=== PATIENT | female | born 1945 | race Caucasian/White ===

== ENCOUNTER 2018-11-26 08:54 | Inpatient (IN) ==
--- NOTE | 2018-11-26 09:50 | History & Physical Report ---
Date of Encounter: 11/26/18 Time of Encounter: 09:50 24 Hour HP Update - Instructions Instructions: If the History and Physical is less than 30 days old and was completed prior to A.M. admission and or procedure and has NOT been updated on calendar day of procedure please complete this update prior to performing procedure. - Update Patient reports changes in Medical Condition: No Changes in examination, assessment, or condition: No Changes in Medication: No Preop tests/diagnostics Reviewed: Yes Surgery Remains Indicated: Yes Consent for Planned Operative Procedure(s) Verified: Yes - Pre-Operative Checklist Preoperative Checklist Indicated: No Prophylactic Antibiotic Ordered: Yes Is VTE Prophylaxis Indicated?: Yes
--- NOTE | 2018-11-26 09:59 | Discharge Summary ---
<Lalo Michaud - Last Filed: 11/26/18 09:59> Orders not resulted at time of discharge: Pending orders 11/26/18 08:07 XR post op reverse apex LT [XR] Routine Hemoglobin and Hematocrit [HEME] Routine Date of Encounter: 11/26/18 - Discharge Diagnosis (1) Rotator cuff tear arthropathy of right shoulder Priority: Primary Status: Chronic (2) Status post reverse total replacement of right shoulder Priority: Primary Status: Acute (3) Obesity (BMI 30.0-34.9) Priority: Secondary Status: Chronic - Hospital Course Hospital course: Ms. Arzola is a 73 year old female - Time Spent with Patient Total time spent providing and/or coordinating discharge services: - Discharge Medications Home Medications: Atorvastatin [Lipitor] 40 mg PO HS 11/26/18 [History] Calcium Carbonate [Calcium] 1 tab PO DAILY 11/26/18 [History] Chlorpheniramine/Dextromethorp [Coricidin Hbp Cough & Cold Tab] 1 tab PO Q6H PRN 11/26/18 [History] Diclofenac Sodium [Voltaren] 1 appl TP QID PRN #0 11/26/18 [History] Fluticasone Propionate Nasal [Flonase] 1 spray NS DAILY 11/26/18 [History] Loratadine [Allergy Relief] 10 mg PO DAILY 11/26/18 [History] Metoprolol Succinate [Toprol Xl] 50 mg PO DAILY 11/26/18 [History] Montelukast [Singulair] 10 mg PO DAILY 11/26/18 [History] Multivit-Min/Iron/Folic Acid/K [Adults Multivitamin Tablet] 1 tab PO DAILY 11/26/18 [History] Omeprazole [PriLOSEC] 20 mg PO DAILY 11/26/18 [History] OxyCODONE Immed Rel [Roxicodone 5 MG] 5 mg PO Q6H PRN 7 Days #28 tablet 11/26/18 [Rx] Phytonadione [Vitamin K] 100 mcg PO DAILY 11/26/18 [History] Trazodone HCl 300 mg PO HS 11/26/18 [History] Vit C/Vit E AC/Lut/Copper/Zinc [Preservision Lutein Softgel] 1 tab PO BID 11/26/18 [History] Allergies/Adverse Reactions: Allergy/AdvReac Type Severity Reaction Status Date / Time azithromycin Allergy Unknown unknown Verified 11/26/18 10:20 [From Zithromax Z-Jay Jay] codeine Allergy Hives Verified 11/26/18 10:21 Sulfa (Sulfonamide Allergy Hives Verified 11/26/18 10:21 Antibiotics) Primary care physician: Margie Vila MD - Patient Status Disposition: Home Health Service Condition: Good - Discharge Instructions Follow Up With: Margie Vila MD [Primary Care Provider] - <Beti Pena - Last Filed: 11/28/18 21:42> Orders not resulted at time of discharge: Pending orders 11/26/18 08:07 XR post op reverse apex LT [XR] Routine Hemoglobin and Hematocrit [HEME] Routine 11/26/18 10:58 US anesthesia pain block [US] Routine Date of Encounter: 11/27/18 Time of Encounter: 21:41 - Discharge Diagnosis (1) Status post reverse total replacement of right shoulder Priority: Primary Status: Acute Comments: Opsite dressing, leave intact until first post-operative visit. Zipline in place, plan to remove at post-operative day #14-16. If dressing becomes >50% saturated, contact office, remove dressing and place appropriate dressing in its place. Do not allow for dressing to get wet. Shoulder Precautions x 6 weeks. Apply cold therapy wrap 3-6x/day for 20 minutes at a time. Encourage ambulation throughout the day. Use Incentive spirometer 10x/hour. Elevate affected extremity above heart as tolerated. NWB to affected upper extremity x 6 weeks. Will remove brace at first post-operative appointment. OK to remove during PT/OT and Home exercises. Remove ABD pillow at Postoperative day #1 (2) Obesity (BMI 30.0-34.9) Status: Chronic (3) Rotator cuff tear arthropathy of right shoulder Status: Chronic - Hospital Course Hospital course: Ms. Arzola is a 73 year old female status post Right TSR-r 11/26/18. Pain control: adequate Participating in PT. All questions and concerns addressed. Educated on use of incentive spirometer. Encouraged ambulation and proper hydration. Patient educated on post-operative restrictions and post-operative care. Assessment and plan: Continue with postoperative care Discharge plan: Home with OP once medically stable. - Time Spent with Patient Total time spent providing and/or coordinating discharge services: Primary care physician: Margie Vila MD - Patient Status Functional capacity at discharge: independent ambulation Overall status at discharge: patient is progressing back to baseline
--- NOTE | 2018-11-26 10:08 | Anesthesia Evaluation PreOp ---
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 Any Significant HX Other Medical History: GERD Anesthesia History: No Prior Anesthetic Complications, Past Anesthesia Alcohol Use: none Drug use: none Medications and Allergies Atorvastatin [Lipitor] 40 mg PO HS 11/26/18 [History] Calcium Carbonate [Calcium] 1 tab PO DAILY 11/26/18 [History] Chlorpheniramine/Dextromethorp [Coricidin Hbp Cough & Cold Tab] 1 each PO Q6H PRN 11/26/18 [History] Fluticasone Propionate Nasal [Flonase] 50 mcg NS DAILY 11/26/18 [History] Loratadine [Allergy Relief] 10 mg PO DAILY 11/26/18 [History] Metoprolol Succinate [Toprol Xl] 50 mg PO DAILY 11/26/18 [History] Montelukast [Singulair] 10 mg PO DAILY 11/26/18 [History] Multivit-Min/Iron/Folic Acid/K [Adults Multivitamin Tablet] 1 each PO DAILY 11/26/18 [History] Omeprazole [PriLOSEC] 20 mg PO DAILY 11/26/18 [History] Phytonadione [Vitamin K] 100 mcg PO DAILY 11/26/18 [History] Trazodone HCl 0.5 tab PO HS 11/26/18 [History] Vit C/Vit E AC/Lut/Copper/Zinc [Preservision Lutein Softgel] 1 each PO BID 11/26/18 [History] Voltaren QID PRN 11/26/18 [History] Allergy/AdvReac Type Severity Reaction Status Date / Time azithromycin Allergy Unknown unknown Verified 11/26/18 10:20 [From Zithromax Z-Jay Jay] codeine Allergy Hives Verified 11/26/18 10:21 Sulfa (Sulfonamide Allergy Hives Verified 11/26/18 10:21 Antibiotics) - Meds/Allergy Pre-op Review Medications Reviewed: Yes Allergies Reviewed: Yes Beta Blockers on Current Med List: Yes If Beta Blockers taken, Date/Time (Last Dose taken): 11/25/2018 at 1900 Anesthesia Results - Labs 11/24/2018 WBC 8.3 HGB 13.3 HCT 39.4 PLT 243 Na 141 K 4.7 BUN 18 Cr 0.92 - Imaging EKG: report reviewed (09/30/2018 sinus rhythm,) Anesthesia Exam O2 Sat Height 1.55 m Weight 80.286 kg O2 Sat by Pulse Oximetry 97 Vital Signs Temp Pulse Resp BP Pulse Ox 97.6 F 73 18 145/75 97 11/26/18 09:49 11/26/18 09:49 11/26/18 09:49 11/26/18 09:49 11/26/18 09:49 Height: 5'1'' Weight: 177 lbs NPO (# of Hours): 8 Pain Scale: 0 Pain Scale Used: Numeric (1 - 10) - HEENT Pupil (Motor): EOMI Mallampati: II Teeth: Normal, Missing Denture Type: Upper: Complete Oral Opening: Greater than 3 - BICYCLE SERVICE TECHNICIAN LOC: Oriented BICYCLE SERVICE TECHNICIAN Motor: Normal RUE, Normal LUE, Normal RLE, Normal LLE, Normal Face BICYCLE SERVICE TECHNICIAN Sensory: Normal: RUE, LUE, RLE, LLE, Face - Cardiac Rhythm: Regular Murmur: None - Pulmonary Breath Sounds: bilateral Clear Respiratory Effort: Symmetrical Anesthesia Assess/Plan ASA Score: 2 Level of consciousness: Cooperative, Oriented, Tranquil Anesthetic Plan: General, Regional Nerve Block Regional Nerve Block Plan: Supraclavicular Monitoring Plan: Standard Monitors Recovery Plan: PACU
[2018-11-26] MEDS ORDERED: Albuterol 2.5 MG/3 ML NEBULIZER IH ONE (10:21)
[2018-11-26] MEDS ORDERED: CeFAZolin Syr 2,000MG/20 ML 2,000 MG/20 ML SYRINGE IVPB ONE (10:21)
[2018-11-26] MEDS ORDERED: Ringers Solution, Lactated 1,000 ML IVC SCH (10:30)
[2018-11-26] MEDS ORDERED: *HR* Succinylcholine 200 MG/10 ML VIAL IVP ONE (10:36)
[2018-11-26] MEDS ORDERED: Dexamethasone 4 MG/ML VIAL ONE (10:36)
[2018-11-26] MEDS ORDERED: Lidocaine -MPF 2% 2 ML VIAL ONE (10:36)
[2018-11-26] MEDS ORDERED: *HR* Propofol 200 MG/20 ML VIAL IVP ONE (10:36)
[2018-11-26] MEDS ORDERED: *HR* FentaNYL (PF) 100 MCG/2 ML VIAL ONE (10:36)
[2018-11-26] MEDS ORDERED: Ondansetron 4 MG/2 ML VIAL ONE (10:36)
[2018-11-26] MEDS ORDERED: *HR* Midazolam HCl 2 MG/2 ML VIAL ONE (10:36)
[2018-11-26] MEDS ORDERED: ROPIVACAINE HCL/PF 0.5% 30 ML VIAL ONE (10:52)
[2018-11-26] MEDS ORDERED: Bupivacaine/Clonidine Syringe 1 EACH SYRINGE ONE (10:53)
[2018-11-26] MEDS ORDERED: Ondansetron 4 MG/2 ML VIAL IVP ONE (10:59)
[2018-11-26] MEDS ORDERED: *HR* OxyCODONE Immed Rel 5 MG TABLET PO PRN ×2 (10:59→13:57)
[2018-11-26] MEDS ORDERED: *HR* HYDROmorphone (PF) 1 MG/ML SYRINGE IVP PRN (10:59)
--- NOTE | 2018-11-26 11:29 | Anesthesia Procedures ---
Date of Encounter: 11/26/18 Time of Encounter: 11:07 Procedures: Anesthesia - Nerve Block Procedure Date: 11/26/18 Time: 11:07 Allergies/Adv Reactions: none Pre-op Diagnosis: Right rotator cuff arthropathy Surgical Procedure: Right total shoulder Checklist: Correct Patient Identifier, Correct procedure, History checked Correct side: Right Blood Thinner: No Monitor Applied: EKG, BP, Pulse Oximetry Supplemental Oxygen via Nasal Cannula (L/min): 2 Sedation: Versed (mg): 2 Sedation: Fentanyl (mcg): 50 Indication: Post Op Analgesia Pre-op Neuro Deficits: No Block Type: Supraclavicular (SCP,ICB) Catheter placed: No Sterile Technique: Yes Ultrasound used: Yes Anatomy identified: Yes Visual spread of Local: Yes Neuro Stimulation: No Blood on Needle Aspiration: No Smooth Injection of Local: Yes Pain with Injection of Local: No Prep: Chlorhexadine Needle: 22 x 50 mm Stimuplex Local: 0.25% Bupivicaine w/Clonidine 20 mcg/cc (10ml), Ropivacaine (0.5% 30ml) Number of Attempts: 1 Complications: None/effective block Vitals: Vital Signs/O2 Sat/Glucose, Most Recent Temp Pulse Resp BP Pulse Ox 97.6 F 73 18 145/75 97 11/26/18 09:49 11/26/18 09:49 11/26/18 09:49 11/26/18 09:49 11/26/18 09:49
[2018-11-26] MEDS ORDERED: Ethanol\\Acetic Acid\\Na Ace\\Ben 1,000 ML IRRIG.SOLN IR ONE (11:46)
--- NOTE | 2018-11-26 13:02 | Orthopedic Operative Note ---
Date of procedure: 11/26/18 Pre-op diagnosis: Cuff tear arthropathy right shoulder Post-op diagnosis: same Procedure: Procedure: Total Shoulder Replacment Reverse, right Estimated blood loss: 50 cc Hardware: Metal and polyethylene replacement: Arthrex 24, +2 , 25 screw glenoid baseplate, 4 locking 5.5 screw, 36/+4 glenosphere, 7 apex humeral stem, poly insert 3 Exam Under anesthesia: Full motion no instability Procedural Notes: Grade 4 arthritic changes humeral head glenoid socket rotator cuff tear Operative procedure: The patient was brought to the operating room and placed on the operating room table. After general anesthesia was administered the operative shoulder was examined. Findings were noted. The patient was placed in the modified beachchair position. All pressure points were padded appropriately. And the head was stabilized in the neutral position. The operative extremity was prepped and draped in the sterile surgical fashion. The patient received IV antibiotics prior to skin incision. A standard deltopectoral approach was made to the operative shoulder. Incision was made to the skin and subcutaneous tissue,hemo stasis was obtained with Bovie cautery. Using careful blunt dissection the cephalic vein was identified and mobilized medially. The deltopectoral interval was developed and the clavipectoral fascia was incised. The subscap was released off the lesser tuberosity and tagged with #2 FiberWire suture subscap irreparable. The humerus was dislocated patient noted to have irreparable tear supraspinatus tendon, and the humeral cut was made along the anatomic neck. Anterior and posterior Bankart retractors were placed to expose the glenoid. Grade 4 arthritic changes humeral head glenoid socket The glenoid guide was seated and the centering hole was made. It was reamed with the appropriate reamer. The 24, +2, 25 mm screw, baseplate was seated and secured with 4 locking 5.5 screw. The baseplate was irrigated and dried and the 36+4 Glenosphere was seated and secured with the Montelongo taper. The Montelongo taper was tested and found to be secure, glenosphere fixation was secondarily secured with the central screw. The humerus was redislocated and prepared with the diaphyseal reamers, followed by a broaching process up to the appropriate size 7 apex in the patient's anatomic version. The metaphyseal reamer was then utilized. Trial reduction found the shoulder to be relocatable. Trial components were removed and 7 apex stem was impacted in place in the patient's anatomic version. Trial reduction found the shoulder to be relocatable and stable with the appropriate 3. Trial component was removed and the real implant was seated and secured the shoulder was reduced. The shoulder had excellent motion and excellent stability and no evidence of dislocation. The deep tissue was irrigated with pulse irrigation. The PA close the shoulder. The deltopectoral interval was closed with a running #1 PDS suture, subcutaneous tissue was irrigated and closed with 0 PDS suture, the skin was closed with Dermabond. The patient was placed in a sterile dressing, abduction brace and extubated. The patient was then transferred to the recovery room in stable condition. Anesthesia: GETA Surgeon: Lalo Michaud Was there an legal assistant present: No Estimated blood loss (cc): 50 Condition: stable Disposition: PACU
--- NOTE | 2018-11-26 13:36 | Anesthesia Evaluation Post Op ---
Date of Encounter: 11/26/18 Time of Encounter: 13:34 - Vital Signs Vital Signs: Vital Signs/O2 Sat/Glucose, Most Recent Temp Pulse Resp BP Pulse Ox 97.6 F 76 12 143/67 97 11/26/18 13:03 11/26/18 13:23 11/26/18 13:23 11/26/18 13:23 11/26/18 13:23 - Lungs Lungs: Clear Ascult./Percussion - Airway Airway: Non-obstructed - Cardiovascular Regular Rate - Mental Status Mental Status: Alert & Oriented, Answers Appropriately - Pain Pain Scale: 0 - Nausea Vomiting Nausea Vomiting: Not Present - Hydration Hydration: Ice chips, Has not voided Notes: 11/26/18 13:35 Pt has fully recovered from anesthetic. VSS. Neuro exam intact. - Discharge PostOp Status: Transfer Patient to floor
[2018-11-26] MEDS ORDERED: Sennosides 8.6 MG TABLET PO PRN (13:57)
[2018-11-26] MEDS ORDERED: traMADol 50 MG TABLET PO PRN (13:57)
[2018-11-26] MEDS ORDERED: Naloxone 0.4 MG/ML INJ IVP PRN (13:57)
[2018-11-26] MEDS ORDERED: MOM Conc 10 ML UD.LIQ PO PRN (13:57)
[2018-11-26] MEDS ORDERED: Ondansetron 4 MG/2 ML VIAL IVP PRN (13:57)
[2018-11-26] MEDS ORDERED: Temazepam 15 MG CAPSULE PO PRN (13:57)
[2018-11-26 14:30] LABS: Hematocrit 39.6 % (35.3-44.9); Hemoglobin 12.8 g/dL (11.5-15.4)
[2018-11-26] MEDS: *HR* Enoxaparin 30 MG/0.3 ML SYRINGE SQ SCH (17:52)
[2018-11-26] MEDS ORDERED: *HR* Enoxaparin 30 MG/0.3 ML SYRINGE SQ SCH (18:00)
[2018-11-26] MEDS ORDERED: TRAZODONE HCL PO SCH (21:00)
[2018-11-26] MEDS: Albuterol 2.5 MG/3 ML NEBULIZER IH SCH (22:51)
[2018-11-26] MEDS: LUT PO SCH (23:09)
[2018-11-26] MEDS: VIT E AC PO SCH (23:09)
[2018-11-26] MEDS: VIT C PO SCH (23:09)
[2018-11-26] MEDS: ZINC PO SCH (23:09)
[2018-11-26] MEDS: COPPER PO SCH (23:09)
[2018-11-27] MEDS: *HR* OxyCODONE/APAP 5/325 TABLET PO PRN ×2 (00:30→06:24)
[2018-11-27] MEDS: Albuterol 2.5 MG/3 ML NEBULIZER IH SCH (04:18)
[2018-11-27] MEDS ORDERED: Albuterol 2.5 MG/3 ML NEBULIZER IH PRN (04:21)
[2018-11-27] MEDS: *HR* Enoxaparin 30 MG/0.3 ML SYRINGE SQ SCH (06:24)
[2018-11-27 07:21] LABS: Hematocrit 35.6 % (35.3-44.9); Hemoglobin 11.7 g/dL (11.5-15.4)
[2018-11-27 07:39] LABS: BUN/Creatinine Ratio 24 (6-26); Blood Urea Nitrogen 17 mg/dL (8-23); Calcium 8.9 mg/dL (8.6-10.3); Carbon Dioxide 25 mEq/L (23-29); Chloride 106 mEq/L (98-107); Glucose 140 mg/dL (70-105); Osmolality,Calculated 290 (280-300); Potassium 4.2 mEq/L (3.5-5.1); Sodium 138 mEq/L (136-145); eGFR For Non-African Americans > 60 (> 60)
[2018-11-27] MEDS: Ringers Solution, Lactated 1,000 ML IVC SCH ×2 (07:43→07:45)
[2018-11-27] MEDS: ZINC PO SCH (08:03)
[2018-11-27] MEDS: COPPER PO SCH (08:03)
[2018-11-27] MEDS: VIT E AC PO SCH (08:03)
[2018-11-27] MEDS: VIT C PO SCH (08:03)
[2018-11-27] MEDS: LUT PO SCH (08:03)
[2018-11-27] MEDS ORDERED: Metoprolol XL (24 HR) Succ 50 MG TAB.ER.24H PO SCH (09:00)
[2018-11-27] MEDS ORDERED: Loratadine 10 MG TABLET PO SCH (09:00)
[2018-11-27] MEDS ORDERED: PHYTONADIONE 100 MCG PO SCH (09:00)
[2018-11-27] MEDS ORDERED: Fluticasone Propionate Nasal 50 MCG/SPRAY BOTTLE NS SCH (09:00)
[2018-11-27] MEDS ORDERED: Multivit/Ca/Min/Fe/FA 1 TAB TABLET PO SCH (09:00)
[2018-11-27 11:31] VITALS: BP 104/51
--- NOTE | 2018-11-29 08:49 | Physician Discharge Referral ---
Home Health/Hosp Referral Info Transfer to: Home Health Provider in Charge Post Discharge: PCP - Diagnosis (1) Status post reverse total replacement of right shoulder Priority: Primary Status: Acute (2) Obesity (BMI 30.0-34.9) Status: Chronic (3) Rotator cuff tear arthropathy of right shoulder Priority: Primary Status: Chronic - Respiratory Orders None Smoking Cessation: Smoking cessation has been advised. For more information, call the [employer] Tobacco Quit Line at 4-116-EJCC-NOW. - Diet/Nutrition Diet/Nutrition Orders: Regular - Activity Activity Orders: Up ad devon, Ambulate - Services Needed Following services are medically necessary services: Nursing, Home Health Aide, Physical Therapy, Occupational Therapy Home Care Orders: Opsite dressing, leave intact until first post-operative visit. Zipline in place, plan to remove at post-operative day #14-16. If dressing becomes >50% saturated, contact office, remove dressing and place appropriate dressing in its place. Do not allow for dressing to get wet. Shoulder Precautions x 6 weeks. Apply cold therapy wrap 3-6x/day for 20 minutes at a time. Encourage ambulation throughout the day. Use Incentive spirometer 10x/hour. Elevate affected extremity above heart as tolerated. NWB to affected upper extremity x 6 weeks. Will remove brace at first post-operative appointment. OK to remove during PT/OT and Home exercises. - Transfer Medications Home Medications: Atorvastatin [Lipitor] 40 mg PO HS 11/26/18 [History] Calcium Carbonate [Calcium] 1 tab PO DAILY 11/26/18 [History] Chlorpheniramine/Dextromethorp [Coricidin Hbp Cough & Cold Tab] 1 tab PO Q6H PRN 11/26/18 [History] Diclofenac Sodium [Voltaren] 1 appl TP QID PRN #0 11/26/18 [History] Fluticasone Propionate Nasal [Flonase] 1 spray NS DAILY 11/26/18 [History] Loratadine [Allergy Relief] 10 mg PO DAILY 11/26/18 [History] Metoprolol Succinate [Toprol Xl] 50 mg PO DAILY 11/26/18 [History] Montelukast [Singulair] 10 mg PO DAILY 11/26/18 [History] Multivit-Min/Iron/Folic Acid/K [Adults Multivitamin Tablet] 1 tab PO DAILY 11/26/18 [History] Omeprazole [PriLOSEC] 20 mg PO DAILY 11/26/18 [History] OxyCODONE Immed Rel [Roxicodone 5 MG] 5 mg PO Q6H PRN 7 Days #28 tablet 11/26/18 [Rx] Phytonadione [Vitamin K] 100 mcg PO DAILY 11/26/18 [History] Trazodone HCl 300 mg PO HS 11/26/18 [History] Vit C/Vit E AC/Lut/Copper/Zinc [Preservision Lutein Softgel] 1 tab PO BID 11/26/18 [History] Allergies/Adverse Reactions: 3 Allergy/AdvReac Type Severity Reaction Status Date / Time azithromycin Allergy Unknown unknown Verified 11/26/18 10:20 [From Zithromax Z-Jay Jay] codeine Allergy Hives Verified 11/26/18 10:21 Sulfa (Sulfonamide Allergy Hives Verified 11/26/18 10:21 Antibiotics) Certification: Further, I certify that my clinical findings support that this patient is ho mebound (i.e. absences from home require considerable and taxing effort and are for medical reasons or quaker services or infrequently or short duration when for other reasons) because: Homebound Reason: Post-surgery restriction and or conditions limit ability to leave home Attestation: My signature below is to certify that this patient is under my care and that I, or nurse practitioner, or a physician's account management assistant working with me, has a [id number] encounter with this patient.
== END 2018-11-27 13:16 | disposition home health service (06) | DRG 483 ==
LOC: SAMDAY 08:54 → 3NENU 13:52
PROVIDERS: ADMIT Orthopaedic Surgery; ATTEND Orthopaedic Surgery